=== PATIENT | male | born 1990 | race Caucasian/White ===

== ENCOUNTER 2018-07-06 14:28 | Emergency (ER) | payer BC, OTHER ==
[~2018-07-06] VITALS: Ht 188 cm; Wt 136.1 kg
[~2018-07-06 14:28] MED LIST: NOHOMEMEDICATIONS; PENICILLIN V P500 MG PO; TRAZODONE 150150 M1 PO; TRILEPTAL300 MG PO; TRILEPTAL600 MG PO; XANAX1 MG PO
[2018-07-06 14:30] VITALS: BP 161/103
== END 2018-07-06 15:29 | disposition home or self-care (01) ==
LOC: ER 14:28
DX: S00.86XA Insect bite (nonvenomous) of other part of head, initial encounter (principal); T78.40XA Allergy, unspecified, initial encounter; F41.9 Anxiety disorder, unspecified; F31.9 Bipolar disorder, unspecified; W57.XXXA Bitten or stung by nonvenomous insect and other nonvenomous arthropods, initial encounter; Y92.89 Other specified places as the place of occurrence of the external cause; Y93.89 Activity, other specified; Y99.8 Other external cause status

== ENCOUNTER 2018-09-01 11:22 | Emergency (ER) | payer OTHER ==
[~2018-09-01] VITALS: Ht 188 cm; Wt 131.5 kg
[2018-09-01] MEDS ORDERED: WELLBUTRIN XL300 MG PO (11:28)
[2018-09-01] MEDS ORDERED: SYMBYAX 6-25 M1 EACH PO (11:28)
[2018-09-01] MEDS ORDERED: PROPRANOLOL 1010 MG PO (11:28)
[2018-09-01] MEDS ORDERED: MOBIC15 MG PO (12:06)
[2018-09-01] MEDS ORDERED: NORCO 5-325 TA1 EAC1 PO (12:06)
[2018-09-01] MEDS ORDERED: CYCLOBENZAPRINE5 MG PO (12:06)
[2018-09-01 12:48] VITALS: BP 135/89
== END 2018-09-01 12:48 | disposition home or self-care (01) ==
LOC: ER 11:22
DX: S39.012A Strain of muscle, fascia and tendon of lower back, initial encounter (principal); M54.16 Radiculopathy, lumbar region; F41.9 Anxiety disorder, unspecified; F31.9 Bipolar disorder, unspecified; X50.0XXA Overexertion from strenuous movement or load, initial encounter; Y92.89 Other specified places as the place of occurrence of the external cause; Y99.0 Civilian activity done for income or pay; Y99.8 Other external cause status